=== PATIENT | female | born 1960 | race Caucasian/White ===

== ENCOUNTER 2018-01-27 20:49 | Emergency (ER) | payer BC ==
--- NOTE | 2018-01-27 21:23 | ER ---
Nurse's Notes [facility] Name: Aga Cordova Age: 57 yrs Sex: Female : 1960 Arrival Date: 01/27/2018 Time: 20:53 Bed 25 Private MD: Sahne Nunez V Diagnosis: Assessment: 01/27 21:06 Reassessment: Registration staff states that they saw patient leave the emergency room. aj1 ED Course: 20:53 Patient arrived in ED. mr 20:54 Shane Nunez MD is Private Physician. mr 21:02 [facility] snw 21:02 Robin Quan MD is Attending Physician. snw Administered Medications: No medications were administered Outcome: 21:06 Eloped from waiting room, before seeing physician Time discovered patient gone: January at 21:06 21:22 Patient left the ED. aj1 Signatures: Scarlett Gleason RN RN aj1 Johanne Collier FNP-C ECHOCARDIOGRAPHY TECH-Csnw Julieta Dean mr
== END 2018-01-27 21:22 | disposition left against medical advice (07) ==
LOC: ER 20:49
DX: Z02.9 Encounter for administrative examinations, unspecified (principal)

== ENCOUNTER 2020-04-07 08:37 | Emergency (ER) | payer BC, OTHER ==
--- OUTSIDE RECORDS SUMMARY | 2020-04-07 09:17 | XMS REPORT | Summary of Care ---
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 routine gynecological exam Health Maintenance Due Date Last Done Comments HEPATITIS C (HCV) SCREEN 1960 PNEUMOCOCCAL 0-64 YEARS COMBINED SERIES (1 of 3 - 1967 PCV13) DTaP,Tdap,and Td Vaccines (1 - Tdap) 1980 PAP SMEAR 1982 Breast Cancer Screening (MAMMOGRAM) 2001 COLON CANCER SCREENING ANNUAL FIT/FOBT 2011 COLON CANCER SCREENING FIT DNA EVERY 3 YEARS 2011 COLON CANCER SCREENING SIGMOIDOSCOPY EVERY 5 YEARS 2011 COLONOSCOPY 2011 Colorectal Cancer Screening 2011 Zoster Recombinant Vaccine (SHINGRIX) (1 of 2) 2011 LUNG CANCER SCREEN: Recommended for age 55-80 with 30 2016 + pack year history INFLUENZA VACCINE (#1) 2020 Depression Screening 04/12/2020 04/12/2019 documented as of this encounter Results Not on filedocumented in this encounter Visit Diagnoses Diagnosis Encounter for well woman exam with clarissa summers gynecological exam - Primary Breast cancer screening by mammogram Encounter for screening for malignant ne oplasm of colon Special screening for malignant neoplasm s, colon documented in this encounter documented as of this encounter
--- OUTSIDE RECORDS SUMMARY | 2020-04-07 09:17 | XMS REPORT | Summary of Care ---
:[address] [facility] - Health Address [address] [place] [address] Care Team Providers Name Role Phone Unavailable Primary Care Provider Unavailable Encounter Details Date Type Department Care Team Description 02/11/[address] [facility] Doctor Unassigned, [address] [facility] [place] [address] [address] [place] [address] Allergies Active Allergy Reactions Severity Noted Date Comments Sulfa (Sulfonamide Rash, Shortness of Breath 8 Antibiotics) documented as of this encounter (statuses as of 02/13/2020) Medications Medication Sig Dispensed Refills Start Date [...] as of this encounter (statuses as of 02/13/2020) Active Problems Problem Noted Date Obesity (BMI 30-39.9) 02/11/2020 Atypical ductal hyperplasia of left breast 06/26/2019 documented as of this encounter (statuses as of 02/13/2020) Social History Tobacco Use Types Packs/Day Years [...] of this encounter Last Filed Vital Signs Not on filedocumented in this encounter Plan of Treatment Date Type Specialty Care Team Description 02/10/2021 Office Visit Obstetrics & Gynecology Tamara Garsia MD [address] [place] [address] Dr. Vizcaino [address] [place] [address] 15-1500 Health Maintenance Due Date Last Done Comments HEPATITIS C (HCV) SCREEN 1960 PNEUMOCOCCAL 0-64 YEARS COMBINED 1967 SERIES (1 of 3 - PCV13) DTaP,Tdap,and Td Vaccines (1 - 1980 Tdap) PAP SMEAR 1982 Breast Cancer Screening 2001 (MAMMOGRAM) COLON CANCER SCREENING ANNUAL 2011 FIT/FOBT COLON CANCER SCREENING FIT DNA 2011 EVERY 3 YEARS COLON CANCER SCREENING 2011 SIGMOIDOSCOPY EVERY 5 YEARS COLONOSCOPY 2011 Colorectal Cancer Screening 2011 Zoster Recombinant Vaccine 2011 (SHINGRIX) (1 of 2) LUNG CANCER SCREEN: Recommended 2016 for age 55-80 with 30 + pack year history INFLUENZA VACCINE (#1) 2020 07/16/2019, 05/30/2018, 04/19/2017, Additional history exists Depression Screening 04/12/2020 04/12/2019 documented as of this encounter Procedures Procedure Name Priority Date/Time Associated Diagnosis Comme nts [id number] CONSENT Routine 02/11/2020 12:01 AM CDT documented in this encounter Results Not on filedocumented in this encounter Insurance Payer Benefit Plan / Group Subscriber ID Effective Dates Phone Address Type YOANNA LENZ II [id number] 2018-Present H MO/PPO/POS documented as of this encounter
--- OUTSIDE RECORDS SUMMARY | 2020-04-07 09:17 | XMS REPORT | Continuity of Care Document ---
:1960 Author Organization [facility] t Address [address] [place] [address] Care Team Providers Name Role Phone Maricarmen Garsia MD Attending Clinician Doctor Unassigned, Name Attending Clinician Unavailable Problems This patient has no known problems. Allergies, Adverse Reactions, Alerts This patient has no known allergies or adverse reactions. Medications This patient has no known medications. Procedures This patient has no known procedures. Encounters Start End Encounter Admission Attending Care Care Encounter Source Date/Time Date/Time Type Type Clinicians Facility Department ID 2020-02-11 2020-02-11 Office KAIA Garsia [id number] 08:57:28 12:09:35 Visit Jeanette Will [id number] [place] [id number] [facility] [id number] [address] 2020-02-11 2020-02-11 Orders Doctor ADRIAN [id number] 00:00:00 00:00:00 Only UnassignedMAT [id number] [facility] [id number] Results This patient has no known results.
--- OUTSIDE RECORDS SUMMARY | 2020-04-07 09:17 | XMS REPORT | Summary of Care ---
:1960 Author Organization [facility] Address [address] [place] [address] Care Team Providers Name Role Phone Unavailable Primary Care Provider Unavailable Reason for Visit Reason Comments Well Woman Exam Encounter Details Date Type Department Care Team Description 02/11/2020 Office Visit [facility] Women's AdumJeanette MD Encounter for well woman exam with clarissa summers gynecological exam (Primary Dx); Healthcare- [address] Breast cancer screening by bennie hawkins; [address] [place] [address] Encounter for screening for malignant ne oplasm of colon Drive, [address] [place] [address] [phone] Allergies Active Allergy Reactions Severity Noted Date [...] This exam may be done by a body builder, family healthcare provider, nurse practitioner, nurse mine boss, or specially trained nurse. Yearly breast exams [...] Guidelines for having clinical breast exams The [employer] recommends that [...] provider about what is best for you. Cellca last reviewed this educational content on 01/24/201719997769-4909 The [employer]. [address] [place] [address], [place] [address]. All rights reserved. This information is not [...] breast self-examination (BSE). These experts include the [employer] and the [employer] Gynec[employer]. Some experts [...] benign. This means they are not cancer. Cellca last reviewed this educational content on 01/24/201719999035-3399 The [employer]. [address] [place] [address]. All rights reserved. This information is not [...] Raphael last reviewed this educational content on 01/24/201719990179-5385 The [employer]. [address] [place] [address], [place] [address]. All rights reserved. This information is not [...] in this age group Every exam 1 [employer] Cellca last reviewed this educational content on 07/21/201519999093-6886 The [employer]. [address] [place] [address]. All rights reserved. This information is not [...] left breast in Sriram s/p biopsy at [facility] center and is currently taking Anastrozole and is under the care of the Physicians at the [place] center in [place] for follow up. Mood is good and stable on current antidepressants- also managed by the [place]. Her last pap smear was in 2012, [...] file Gets together: Not on file Attends adventism service: Not on file Active member of [...] Visit Obstetrics & Gynecology Tamara Garsia MD [address] [place] [address] Dr. Mendoza [place] [phone] 15-1500 Name Type Priority Associated Diagnoses Order [...]
--- OUTSIDE RECORDS SUMMARY | 2020-04-07 09:17 | XMS REPORT | Summary of Care ---
:1960 Author Organization [facility] Address [address] [place] [address] Care Team Providers Name Role Phone Unavailable Primary Care Provider Unavailable Reason for Visit Reason Comments Well Woman Exam Encounter Details Date Type Department Care Team Description 02/11/2020 Office Visit [facility] Women's AdumJeanette MD Encounter for well woman exam with clarissa summers gynecological exam (Primary Dx); Healthcare- [address] Breast cancer screening by bennie hawkins; [address] [place] [address] Encounter for screening for malignant ne oplasm of colon Drive, [address] [place] [address] [phone] Allergies Active Allergy Reactions Severity Noted Date [...] This exam may be done by a marketing strategy manager, family healthcare provider, nurse practitioner, nurse paste plant supervisor, or specially trained nurse. Yearly breast exams [...] Guidelines for having clinical breast exams The [employer] recommends that [...] provider about what is best for you. Zeus last reviewed this educational content on 01/24/201719993562-1780 The [employer]. [address] [place] [address], [place] [address]. All rights reserved. This information is not [...] breast self-examination (BSE). These experts include the [employer] and the [employer] [employer] Gynecologists. Some experts [...] benign. This means they are not cancer. Zeus last reviewed this educational content on 01/24/201719990517-1168 The [employer]. [address] [place] [address]. All rights reserved. This information is not [...] Raphael last reviewed this educational content on 01/24/201719994842-4869 The [employer]. [address] [place] [address], [place] [address]. All rights reserved. This information is not [...] in this age group Every exam 1 [employer] Zeus last reviewed this educational content on 07/21/201519990052-9308 The [employer]. [address] [place] [address]. All rights reserved. This information is not [...] left breast in Sriram s/p biopsy at [facility] center and is currently taking Anastrozole and is under the care of the Physicians at the [place] center in [place] for follow up. Mood is good and stable on current antidepressants- also managed by the [place]. Her last pap smear was in 2012, [...] file Gets together: Not on file Attends hindu service: Not on file Active member of [...] Visit Obstetrics & Gynecology Tamara Garsia MD [address] [place] [address] Dr. Mendoza [place] [phone] [phone] Name Type Priority Associated Diagnoses Order [...]
--- NOTE | 2020-04-07 09:54 | RAD REPORT ---
EXAM DESCRIPTION: RAD - Knee Right 3 View - 04/07/2020 9:41 am CLINICAL HISTORY: PAIN COMPARISON: No comparisons FINDINGS: Mild medial compartment space osteoarthritic changes are present. Trace suprapatellar join t effusion. No acute fracture or dislocation evident
--- NOTE | 2020-04-07 10:04 | EDPHYS ---
Physician Documentation [facility] Name: Aga Cordova Age: 59 yrs Sex: Female : 1960 Arrival Date: 04/07/2020 Time: 08:39 Bed 16 Private MD: Shane Nunez V ED Physician Robin Quan HPI: 04/07 09:22 This 59 yrs old Female presents to ER via Ambulatory with complaints of Knee pm1 Pain. 09:22 The patient presents with pain, that is acute. The complaints affect the right knee. pm1 Context: The problem was sustained Gym, resulted from Leg press, the patient can partially bear weight, the patient is able to ambulate, with mild difficulty, Problem is a result from a previous injury: No. Onset: The symptoms/episode began/occurred 4 day(s) ago. Modifying factors: the symptoms are aggravated by weight bearing, bending knee. Associated signs and symptoms: Pertinent negatives calf tenderness, fever, nausea, numbness, vomiting. Severity of symptoms: in the emergency department the symptoms are unchanged. The patient has not experienced similar symptoms in the past. Patient was working out at the gym. Had not done leg presses in a long time. While doing leg press she felt some pain to right knee that stopped her from doing any further presses. Pain was not too bad therefore she went on the stationary bike the onset of pain. Came to the ER because the pain got worse and is still present with weight bearing and bending knee. Historical: - Allergies: 09:06 Sulfa (Sulfonamide Antibiotics); jl7 - Home Meds: 09:06 clonidine HCl 0.2 mg Oral tab [Active]; Lexapro 20 mg Oral tab 1 tab once daily jl7 [Active]; Rexulti 1 mg oral tab [Active]; clonazepam 0.5 mg Oral tab [Active]; alogliptin 25 mg oral tab 1 tab once daily [Active]; atorvastatin 40 mg oral tab 1 tab once daily [Active]; anastrozole 1 mg oral tab 1 tab once daily [Active]; - PMHx: 09:06 Depression; Anxiety; Night Terrors; Hyperlipidemia; Diabetes - NIDDM; Atypical jl7 hyperplasia duct cells; - Immunization history:: Adult Immunizations up to date. - Social history:: Smoking status: Patient denies any tobacco usage or history of. ROS: 09:26 Constitutional: Negative for fever, chills, and weight loss, Cardiovascular: Negative pm1 for chest pain, palpitations, and edema, Respiratory: Negative for shortness of breath, cough, wheezing, and pleuritic chest pain. 09:26 Skin: Negative for injury, rash, and discoloration, Neuro: Negative for headache, weakness, numbness, tingling, and seizure. 09:26 MS/extremity: Positive for pain, swelling, of the right knee, Negative for deformity. 09:26 All other systems are negative. Exam: 09:26 Constitutional: This is a well developed, well nourished patient who is awake, alert, pm1 and in no acute distress. Head/Face: Normocephalic, atraumatic. 09:26 Skin: Warm, dry with normal turgor. Normal color with no rashes, no lesions, and no evidence of cellulitis. 09:26 Cardiovascular: Exam negative for acute changes, Rate: normal, Rhythm: regular, Pulses: no pulse deficits are appreciated, Edema: is not appreciated. 09:26 Respiratory: Exam negative for acute changes, respiratory distress, shortness of breath. 09:26 Musculoskeletal/extremity: Extremities: grossly normal except: noted in the right knee: tenderness, pain with valgus stress and external rotation of knee. negative drawer and varus stress. 09:26 Neuro: Exam negative for acute changes, Orientation: is normal, Mentation: is normal, Motor: is normal, moves all fours, Sensation: is normal, no obvious gross deficits. Vital Signs: 08:59 BP 118 / 66; Pulse 96; Resp 17 S; Temp 98.2(O); Pulse Ox 99% on R/A; Weight 100.24 kg jl7 (R); Height 5 ft. 9 in. (175.26 cm) (R); Pain 10/10; 10:00 BP 120 / 67; Pulse 89; Resp 15; Pulse Ox 100% ; jl7 08:59 Body Mass Index 32.64 (100.24 kg, 175.26 cm) jl7 MDM: 09:02 Patient medically screened. pm1 09:19 ED course: Patient reports pain not present to right knee as long as she is not bearing pm1 weight or bending. Did not want pain medication in the ER. Therefore told her plan of care after x-ray is knee immobilizer, crutches, discharge home with pain medications PRN and follow up with ortho for MRI. 10:02 Data reviewed: vital signs. Data interpreted: Pulse oximetry: on room air is 99 %. pm1 Interpretation: normal. Counseling: I had a detailed discussion with the patient and/or guardian regarding: the historical points, exam findings, and any diagnostic results supporting the discharge/admit diagnosis, radiology results, the need for outpatient follow up, for definitive care, a orthopedic surgeon, to return to the emergency department if symptoms worsen or persist or if there are any questions or concerns that arise at home. 04/07 09:07 Order name: XRAY Knee RIGHT 3 view; Complete Time: 10:02 jl7 04/07 09:19 Order name: Knee Immobilizer; Complete Time: 10:26 pm1 Administered Medications: No medications were administered Disposition: 17:51 Co-signature as Attending Physician, Robin Quan MD. rn Disposition: 04/07/20 10:03 Discharged to Home. Impression: Unspecified internal derangement of right knee. - Condition is Stable. - Discharge Instructions: Crutch Use, Knee Immobilizer, Knee Pain. - Prescriptions for Tylenol- Codeine #3 300-30 mg Oral Tablet - take 2 tablets by ORAL route every 6 hours As needed; 20 tablet. - Medication Reconciliation Form, Thank You Letter, Antibiotic Education, Prescription Opioid Use form. - Follow up: Emergency Department; When: As needed; Reason: Worsening of condition. Follow up: Corey Benoit MD; When: 2 - 3 days; Reason: Recheck today's complaints, Continuance of care, Re-evaluation by your physician. - Problem is new. - Symptoms have improved. Signatures: Dispatcher [employer] EDMS Robin Quan MD MD rn Marinas, Patrick, TOOL OPERATOR TOOL OPERATOR pm1 Marry Landa RN RN jl7 Corrections: (The following items were deleted from the chart) 10: 09:19 Crutches ordered. pm1 mt 10:28 10:03 04/07/2020 10:03 Discharged to Home. Impression: Unspecified internal derangement jl7 of right knee. Condition is Stable. Forms are Medication Reconciliation Form, Thank You Letter, Antibiotic Education, Prescription Opioid Use. Follow up: Emergency Department; When: As needed; Reason: Worsening of condition. Follow up: Dr. Corey Benoit; When: 2 - 3 days; Reason: Recheck today's complaints, Continuance of care, Re-evaluation by your physician. Problem is new. Symptoms have improved. pm1
--- NOTE | 2020-04-07 10:04 | ER ---
Nurse's Notes [facility] Name: Aga Cordova Age: 59 yrs Sex: Female : 1960 Arrival Date: 04/07/2020 Time: 08:39 Bed 16 Private MD: Shane Nunez V Diagnosis: Unspecified internal derangement of right knee Presentation: 04/07 08:59 Chief complaint: Patient states: Working out on Monday and hurt right knee, minor jl7 swelling noted. Coronavirus screen: Client denies travel out of the [place] in the last 14 days. At this time, the client does not indicate any symptoms associated with coronavirus-19. Ebola Screen: No symptoms or risks identified at this time. Initial Sepsis Screen: Does the patient meet any 2 criteria? No. Patient's initial sepsis screen is negative. Does the patient have a suspected source of infection? No. Patient's initial sepsis screen is negative. Risk Assessment: Do you want to hurt yourself or someone else? Patient reports no desire to harm self or others. Onset of symptoms was April 05, 2020. Care prior to arrival: None. Transition of care: patient was not received from another setting of care. 08:59 Method Of Arrival: Ambulatory jl7 08:59 Acuity: CATARINA 4 jl7 Triage Assessment: 09:06 General: Appears in no apparent distress. uncomfortable, Behavior is calm, cooperative, jl7 appropriate for age. Pain: Complains of pain in right knee Pain currently is 10 out of 10 on a pain scale. Neuro: Level of Consciousness is awake, alert, obeys commands, Oriented to person, place, time, situation. Cardiovascular: Patient's skin is warm and dry. Respiratory: Airway is patent Respiratory effort is even, unlabored, Respiratory pattern is regular, symmetrical. Musculoskeletal: Swelling present in right knee. Historical: - Allergies: 09:06 Sulfa (Sulfonamide Antibiotics); jl7 - Home Meds: 09:06 clonidine HCl 0.2 mg Oral tab [Active]; Lexapro 20 mg Oral tab 1 tab once daily jl7 [Active]; Rexulti 1 mg oral tab [Active]; clonazepam 0.5 mg Oral tab [Active]; alogliptin 25 mg oral tab 1 tab once daily [Active]; atorvastatin 40 mg oral tab 1 tab once daily [Active]; anastrozole 1 mg oral tab 1 tab once daily [Active]; - PMHx: 09:06 Depression; Anxiety; Night Terrors; Hyperlipidemia; Diabetes - NIDDM; Atypical jl7 hyperplasia duct cells; - Immunization history:: Adult Immunizations up to date. - Social history:: Smoking status: Patient denies any tobacco usage or history of. Screenin:30 Abuse screen: Denies threats or abuse. Denies injuries from another. Nutritional jl7 screening: No deficits noted. Tuberculosis screening: No symptoms or risk factors identified. Fall Risk None identified. Assessment: 09:30 General: See triage. jl7 Vital Signs: 08:59 BP 118 / 66; Pulse 96; Resp 17 S; Temp 98.2(O); Pulse Ox 99% on R/A; Weight 100.24 kg jl7 (R); Height 5 ft. 9 in. (175.26 cm) (R); Pain 10/10; 10:00 BP 120 / 67; Pulse 89; Resp 15; Pulse Ox 100% ; jl7 08:59 Body Mass Index 32.64 (100.24 kg, 175.26 cm) jl7 ED Course: 08:39 Patient arrived in ED. ag5 08:39 Shane Nunez MD is Private Physician. ag5 08:47 Marry Landa RN is Primary Nurse. jl7 09:02 Triage completed. jl7 09:02 Rene Vanegas NP is PHCP. pm1 09:02 Robin Quan MD is Attending Physician. pm1 09:06 Arm band placed on right wrist. jl7 09:30 Patient has correct armband on for positive identification. Placed in gown. Bed in low jl7 position. Call light in reach. Side rails up X 1. Pulse ox on. NIBP on. Warm blanket given. 09:41 XRAY Knee RIGHT 3 view In Process Unspecified. EDMS 10:03 Corey Benoit MD is Referral Physician. pm1 10:15 Knee immobilizer applied on right knee. jl7 10:27 No provider procedures requiring assistance completed. Patient did not have IV access jl7 during this emergency room visit. Administered Medications: No medications were administered Outcome: 10:03 Discharge ordered by . pm1 10:28 Discharged to home via wheelchair. jl7 10:28 Condition: stable 10:28 Discharge instructions given to patient, Instructed on discharge instructions, follow up and referral plans. medication usage, Demonstrated understanding of instructions, follow-up care, medications, Prescriptions given X 1. 10:28 Patient left the ED. jl7 Signatures: Dispatcher [employer] EDRene Russell NP TANNING DRUM OPERATOR pm1 Marry Landa RN RN jl7 Flex Welsh 5
[2020-04-07 10:41] VITALS: TEMP 98.2
[2020-04-07 10:43] VITALS: BP 120/67; O2SAT 100
== END 2020-04-07 10:28 | disposition home or self-care (01) ==
LOC: ER 08:37
DX: M23.91 Unspecified internal derangement of right knee (principal); E11.9 Type 2 diabetes mellitus without complications; E78.5 Hyperlipidemia, unspecified; F41.8 Other specified anxiety disorders; Z88.2 Allergy status to sulfonamides
CPT/HCPCS: 99284